=== PATIENT | female | born 1995 | race Caucasian/White ===

== ENCOUNTER 2019-06-22 20:46 | Emergency (ER) | payer BC ==
--- NOTE | 2019-06-22 20:56 | UC ---
Respiratory Complaint HPI - History of Current Complaint Stated Complaint: ASTHMA Time Seen by Provider: 06/22/19 20:50 Discharge ED - Discharge Plan Referrals: No Primary Care Phys,NOPCP [Primary Care Provider] -
--- NOTE | 2019-06-22 21:00 | UC ---
Respiratory Complaint HPI - HPI Summary HPI Summary: Difficulty breathing w/ after staying at her parents house. She is asthmatic and reports smoke and cats as triggers where there was exposure to at her parents home. NIght time is worse and not improved w/ inhaler as she feels it is not working correctly. Nothing makes it better. - History of Current Complaint Chief Complaint: UCRespiratory Stated Complaint: ASTHMA Time Seen by Provider: 06/22/19 20:50 Hx Obtained From: Patient - Allergies/Home Medications Allergies/Adverse Reactions: Allergies Allergy/AdvReac Type Severity Reaction Status Date / Time No Known Allergies Allergy Verified 06/22/19 21:17 Home Medications: Home Medications Albuterol HFA INHALER* [Ventolin HFA Inhaler*] 2 puff INH Q4H PRN 06/22/19 [ History Confirmed 06/22/19] PMH/Surg Hx/FS Hx/Imm Hx Previously Healthy: Yes Respiratory History: Asthma Review of Systems All Other Systems Reviewed And Are Negative: Yes Constitutional: Negative: Fever, Chills, Fatigue ENT: Negative: Sore Throat Respiratory: Positive: Cough. Negative: Other - denies wheeze Cardiovascular: Negative: Palpitations Neurological: Negative: Headache Physical Exam Triage Information Reviewed: Yes Vital Signs Reviewed: Yes Eyes: Positive: Conjunctiva Clear ENT: Positive: Pharynx normal, TMs normal, Uvula midline Neck: Positive: Supple Respiratory: Positive: No respiratory distress, Wheezing. Negative: Crackles, Rhonchi, Stridor Neurological: Positive: Other: - normal speech Skin Exam: Normal Respiratory Course/Dx - Course Course Of Treatment: Mild asthma exacerbation after being exposed to triggers. I tested her inhaler and she is correct the medication did not spray as expected. I was to rx new inhaler and short course of prednisone. Discussed prevention. Good vitals and O2 slightly lower. ON exam wheezing was heard but no evidence of resp. distress - Differential Dx/Diagnosis Differential Diagnosis/HQI/PQRI: Asthma, Bronchitis, Other Provider Diagnosis: Asthma exacerbation Discharge ED - Sign-Out/Discharge Documenting (check all that apply): Patient Departure All imaging exams completed and their final reports reviewed: No Studies - Discharge Plan Condition: Good Disposition: HOME Prescriptions: predniSONE [Prednisone 20 MG TAB] 20 mg PO DAILY 2 Days #2 tablet Patient Education Materials: Bronchospasm (ED) Forms: *School Release Referrals: No Primary Care Phys,NOPCP [Primary Care Provider] - Additional Instructions: IF NOT IMPROVING PLEASE GO TO THE EMERGENCY ROOM - Billing Disposition and Condition Condition: GOOD Disposition: Home - Attestation Statements Provider Attestation: I was available for consult. This patient was seen by the KAI[facility]. The patient was not presented to , seen by or examined by tn -Cheo Davidson MD
[2019-06-22 21:17] VITALS: BP 116/83
[2019-06-22] MEDS ORDERED: Albuterol HFA INHALER* 8 gm MDI INH ONE (21:29)
[2019-06-22] MEDS ORDERED: predniSONE TAB* 20 MG PO ONE (21:32)
[2019-06-22] MEDS ORDERED: Albuterol 2.5 MG/3 ML NEB.SOL* (0.083%) INH ONE (21:50)
== END 2019-06-22 22:10 | disposition home or self-care (01) ==
LOC: UCEAST 20:46
DX: J45.901 Unspecified asthma with (acute) exacerbation (principal)
CPT/HCPCS: 99202; A9270-GY; G0463; J7512